=== PATIENT | male | born 1950 | race Caucasian/White ===

== ENCOUNTER 2025-03-15 17:01 | Observation (INO) | payer MEDICARE, OTHER ==
[~2025-03-15] VITALS: Ht 172.7 cm; Wt 56.4 kg
[2025-03-15 17:41] LABS: BASOPHILS ABSOLUTE AUTO 0.05 K/mm3 (0.00-0.23); BASOPHILS PERCENT AUTO 1 % (0-2); EOSINOPHILS ABSOLUTE AUTO 0.08 K/mm3 (0.00-0.68); EOSINOPHILS PERCENT AUTO 1 % (0-6); Hematocrit 42.9 % (37.0-53.0); Hemoglobin 14.6 g/dL (13.5-17.5); IMMATURE GRAN ABSOLUTE AUTO 0.02 K/mm3 (0.00-0.10); IMMATURE GRAN PERCENT AUTO 0 % (0-1); LYMPHOCYTES ABSOLUTE AUTO 1.70 K/mm3 (0.84-5.20); LYMPHOCYTES PERCENT AUTO 21 % (21-46); MONOCYTES ABSOLUTE AUTO 0.51 K/mm3 (0.16-1.47); MONOCYTES PERCENT AUTO 6 % (4-13); Mean Corpuscular HGB Conc 34.0 g/dL (31.5-36.5); Mean Corpuscular Volume 100 fL (80-100); NEUTROPHILS ABSOLUTE AUTO 5.85 K/mm3 (1.96-9.15); NEUTROPHILS PERCENT AUTO 71 % (41-73); NRBC ABSOLUTE 0.00 K/mm3 (0.00-0.02); NRBC Auto 0.0 /100 WBC (0.0-0.2); Platelet Count 368 K/mm3 (150-400); RDW Coefficient Variation 13.8 % (11.7-14.2); RDW Standard Deviation 50.5 fL (35.1-46.3)
[2025-03-15 18:04] LABS: Alanine Aminotransfer (ALT/SGP 19.0 U/L (12-78); Albumin, Blood 3.3 g/dL (3.4-5.0); Albumin/Globulin Ratio 0.9 (0.8-1.8); Anion Gap 7.0 mmol/L (3-11); Aspartate Aminotrans (AST/SGOT 40.0 U/L (12-37); Bilirubin, Total 0.7 mg/dL (0.1-1.0); Blood Urea Nitrogen 11.0 mg/dL (8-24); CO2, Blood 28.0 mmol/L (21-32); Calcium, Blood 9.0 mg/dL (8.5-10.1); Chloride, Blood 108.0 mmol/L (98-108); Creatinine, Blood 0.66 mg/dL (0.60-1.20); Globulin, Blood 3.8 g/dL (2.2-4.0); Glucose, Blood 97.0 mg/dL (70-99); Potassium, Blood 4.6 mmol/L (3.5-5.5); Sodium, Blood 138.0 mmol/L (136-145); Total Protein, Blood 7.1 g/dL (6.4-8.2)
[2025-03-15 21:54] LABS: Ethanol (Alcohol), Blood, Med 136.0 mg/dL
[2025-03-16] MEDS ORDERED: Protein Supplement 30 ML UD PT SCH (17:30)
[2025-03-16 18:24] VITALS: BP 166/80
--- NOTE | 2025-03-16 18:46 | NUR ---
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 PT IS ON ROOM AIR. NPO, HAS PEG TUBE WITH ORDERS TO FEED. TRANSFERRED FROM [facility] USING SBA FOR STABITLITY USING FWW. IN REPORT, THIS RN WAS TOLD PT CAREGIVERS SHOULD BE RELEASED FROM CUSTODY ON 03/19/25. BED IN LOWEST POSITION, CALL LIGHT WITHIN REACH.
[2025-03-16 19:51] VITALS: BP 111/93
[2025-03-17 04:34] VITALS: BP 145/103
--- NOTE | 2025-03-17 05:04 | NUR ---
SHIFT SUMMARY 74 YR M ADMITTED ON 03/16/25. FULL CODE. NO ACUTE CHANGES THIS SHIFT. PT IS ABLE TO INDEPENDANTLY AMBULATE TO THE BATHROOM, AND ALSO USES URINAL AT BEDSIDE. PT SPEECH IS QUITE HARD TO UNDERSTAND DUE TO EXPRESSIVE APHASIA A RESULT OF A PREVIOUS CVA, BUT HE IS PLEASANT AND COOPERATIVE WITH CARE. PT IS NPO AT THIS TIME BUT STATES THAT HE EATS SOFT FOODS AT HOME SUCH OATMEAL AND CREAM OF WHEAT. WILL PASS THIS ON TO DAYSHIFT NURSE AND SUGGESTED TO PT THAT HE SPEAK WITH DOC IN THE A.M. BED IN LOW POSITION AND CALL LIGHT IN REACH.
[2025-03-17 05:47] LABS: Anion Gap 3.0 mmol/L (3-11); Blood Urea Nitrogen 16.0 mg/dL (8-24); CO2, Blood 32.0 mmol/L (21-32); Calcium, Blood 8.7 mg/dL (8.5-10.1); Chloride, Blood 107.0 mmol/L (98-108); Creatinine, Blood 0.7 mg/dL (0.60-1.20); Glucose, Blood 99.0 mg/dL (70-99); Magnesium, Blood 2.3 mg/dL (1.6-2.4); Phosphorus, Blood 2.9 mg/dL (2.5-4.9); Potassium, Blood 3.4 mmol/L (3.5-5.5); Sodium, Blood 139.0 mmol/L (136-145)
[2025-03-17 07:51] VITALS: BP 132/72
[2025-03-17] MEDS ORDERED: Enoxaparin 40 MG/0.4 ML SYR SC SCH (09:00)
[2025-03-17] MEDS ORDERED: NS 250 ML IV PRN (09:20)
[2025-03-17 15:06] VITALS: BP 113/68
--- NOTE | 2025-03-17 16:33 | NUR ---
PT HAS EXPRESSIVE APHASIA AND CAN BE DIFFICULT TO UNDERSTAND. HE IS ALERT AND ABLE TO MAKE HIS NEEDS KNOWN WELL WITH HIS CALL LIGHT. HE'S PLEASANT AND COOPERATIVE WITH CARE. PT IS A SBA W/FWW TO THE TOILET AND WILL SOMETIMES USE HIS BEDSIDE URINAL. HIS DIET WAS CHANGED TO MINCED AND MOIST TODAY. HE HAD ONE EPISODE OF COUGHING WHILE EATING, THIS WAS RELAYED TO ST AND THEY SUGGESTED RECONTACTING THEM IF THIS PERSISTS. PT IS CURRENTLY SITTING UP IN CHAIR WITH CALL LIGHT IN REACH.
[2025-03-17 19:19] VITALS: BP 151/92
[2025-03-18 04:41] VITALS: BP 131/74
[2025-03-18 05:40] LABS: Anion Gap 7.0 mmol/L (3-11); Blood Urea Nitrogen 17.0 mg/dL (8-24); CO2, Blood 27.0 mmol/L (21-32); Calcium, Blood 8.3 mg/dL (8.5-10.1); Chloride, Blood 109.0 mmol/L (98-108); Creatinine, Blood 0.65 mg/dL (0.60-1.20); Glucose, Blood 129.0 mg/dL (70-99); Potassium, Blood 3.6 mmol/L (3.5-5.5); Sodium, Blood 139.0 mmol/L (136-145)
[2025-03-18 08:13] VITALS: BP 139/72
[2025-03-18] MEDS ORDERED: LIQUICAL PLUS480 ML PT (13:23)
--- NOTE | 2025-03-18 13:57 | NUR ---
REPORT GIVEN TO JUAN AT [facility]. CURRENTLY AWAITING TRANSPORTATION. PT HAS EXPRESSIVE APHASIA. TUBE FEEDS PER ORDER. PT UNDERSTANDING ABOUT CURRENT SITUATION BY EXPRESSES DESIRE TO STAY AT THE HOSPITAL. AFTER TALKING WITH PT, HE VERBALIZES UNDERSTAND OF WHY HE CANT STAY AT THE HOSPITAL. PER WAREHOUSE PACKER, MESSAGE WAS LEFT FOR LICENSED NURSE PRACTITIONER AT [facility].
== END 2025-03-18 14:19 ==
LOC: ER 17:01 → EDBD 17:01 → MEDS 17:02
PROVIDERS: Student in an Organized Health Care Education/Training Program; ADMIT Internal Medicine
DX: E43 Unspecified severe protein-calorie malnutrition (principal); R62.7 Adult failure to thrive; Z68.1 Body mass index [BMI] 19.9 or less, adult; F10.129 Alcohol abuse with intoxication, unspecified; E87.6 Hypokalemia; I69.320 Aphasia following cerebral infarction; J90 Pleural effusion, not elsewhere classified; Z93.1 Gastrostomy status; Z59.02 Unsheltered homelessness
CPT/HCPCS: 36415; 71045; 80048; 80053; 80320; 82947; 83735; 84100; 85025; 93005; 93010; 96372; 96374; 99282-25; 99285-25; A9270; G0378; J1650; J3480; J7050